=== PATIENT | male | born 1995 | race Caucasian/White ===

== ENCOUNTER 2017-05-17 10:35 | Emergency (ER) | payer BC ==
[~2017-05-17] VITALS: Ht 180.3 cm; Wt 102.3 kg
[2017-05-17 10:38] VITALS: BP 139/85; PULSE 86; TEMP 99.4
[2017-05-17] MEDS ORDERED: PREDNISONE20 MG PO (10:59)
== END 2017-05-17 11:10 | disposition home or self-care (01) ==
LOC: COL.ER 10:35
DX: L50.9 Urticaria, unspecified (principal)